=== PATIENT | female | born 1970 | race Caucasian/White ===

== ENCOUNTER 2019-07-30 23:50 | Observation (INO) | payer OTHER ==
[2019-07-31] MEDS ORDERED: ASPIRIN 81 MG CHEWABLE TABLET ONE (00:40)
[2019-07-31 00:52] LABS: Absolute Lymphocytes (CBC) 3.6 K/uL (0.7-4.9); Hematocrit 44.1 % (36.0-45.0); Lymphocytes % 39.2 % (15.3-44.8); MPV 8.5 fL (7.6-11.3); Protime INR 0.97; RBC Red Blood Cell Count 4.84 M/uL (3.86-4.86)
[2019-07-31 01:16] LABS: ALT/SGPT 17 U/L (12-78); AST/SGOT 11 U/L (15-37); Albumin 3.8 g/dL (3.4-5.0); Alkaline Phosphatase 57 U/L (45-117); BUN Blood Urea Nitrogen 14 mg/dL (7-18); Bicarbonate 25 mmol/L (21-32); Bilirubin Direct < 0.1 mg/dL (0-0.2); Bilirubin Total 0.3 mg/dL (0.2-1.0); Glucose Level 131 mg/dL (74-106); Magnesium 1.9 mg/dL (1.8-2.4); NT PRO-BNP 95 pg/mL (<125); Potassium 3.2 mmol/L (3.5-5.1); Protein, Total 6.8 g/dL (6.4-8.2); Sodium Level 141 mmol/L (136-145); Troponin (Emerg Dept Use Only) 0.03 ng/mL (0.0-0.045)
--- NOTE | 2019-07-31 01:30 | ER ---
Nurse's Notes [facility] Name: David El Age: 48 yrs Sex: Female : 1970 Arrival Date: 07/30/2019 Time: 23:52 Bed 15 Private MD: Diagnosis: Chest pain, unspecified;Angina pectoris, unspecified Presentation: 07/31 00:01 Presenting complaint: Intermittent left sided chest pain that radiates to left shoulder hb and neck x 2 months, worse over last few hours. Transition of care: patient was not received from another setting of care. Onset of symptoms was July 31, 2019. Risk Assessment: Do you want to hurt yourself or someone else? Patient reports no desire to harm self or others. Care prior to arrival: None. 00:01 Method Of Arrival: Ambulatory hb 00:01 Acuity: CHELSY 3 hb 02:50 Initial Sepsis Screen: Does the patient meet any 2 criteria? No. Patient's initial jd3 sepsis screen is negative. Does the patient have a suspected source of infection? No. Patient's initial sepsis screen is negative. 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 - Coronavirus screen:: The patient has NOT traveled to [place], [place], or [place] in the past 14 days. The patient has NOT had contact with known/suspected case of Coronavirus? Proceed with normal triage procedures. - Social history:: Smoking status: Patient reports the use of cigarette tobacco products, smokes one pack cigarettes per day. - Family history:: pertinent for heart disease. - Ebola Screening: : No symptoms or risks identified at this time. - Hospitalizations: : No recent hospitalization is reported. Screenin:50 Abuse screen: Denies threats or abuse. Nutritional screening: No deficits noted. jd3 Tuberculosis screening: No symptoms or risk factors identified. Fall Risk IV access (20 points). Ambulatory Aid- None/Bed Rest/Nurse Assist (0 pts). Gait- Normal/Bed Rest/Wheelchair (0 pts) Mental Status- Oriented to own ability (0 pts). Total Kelly Fall Scale indicates No Risk (0-24 pts). Assessment: 00:14 General: Appears in no apparent distress. Behavior is calm, cooperative, appropriate wh for age. Pain: Complains of pain in chest Pain radiates to neck and shoulder Pain currently is 4 out of 10 on a pain scale. Quality of pain is described as sharp, Pain began suddenly. Neuro: Level of Consciousness is awake, alert, obeys commands, Oriented to person, place, time, situation, Appropriate for age. Cardiovascular: Heart tones S1 S2 Rhythm is regular Chest pain is described as mild. Respiratory: Airway is patent Respiratory effort is even, unlabored, Respiratory pattern is regular, symmetrical, Breath sounds are clear bilaterally. GI: Abdomen is flat, non-distended. : No signs and/or symptoms were reported regarding the genitourinary system. EENT: No signs and/or symptoms were reported regarding the EENT system. Derm: Skin is intact, is healthy with good turgor, Skin is pink, warm \T\ dry. normal. Musculoskeletal: Circulation, motion, and sensation intact. 01:22 Reassessment: Patient appears in no apparent distress at this time. No changes from previously documented assessment. Patient and/or family updated on plan of care and expected duration. Pain level reassessed. Patient is alert, oriented x 3, equal unlabored respirations, skin warm/dry/pink. 02:45 General: Appears in no apparent distress. comfortable, Behavior is calm, cooperative, jd3 appropriate for age. Pain: Complains of pain in chest Quality of pain is described as aching. Neuro: Level of Consciousness is awake, alert, obeys commands, Oriented to person, place, time, situation. Cardiovascular: Capillary refill < 3 seconds Patient's skin is warm and dry. Rhythm is regular. Respiratory: Airway is patent Respiratory effort is even, unlabored, Respiratory pattern is regular, symmetrical, Denies cough, shortness of breath. GI: No signs and/or symptoms were reported involving the gastrointestinal system. : No signs and/or symptoms were reported regarding the genitourinary system. EENT: No signs and/or symptoms were reported regarding the EENT system. Derm: Skin is intact, Skin is dry, Skin is normal, Skin temperature is warm. Musculoskeletal: Circulation, motion, and sensation intact. Range of motion: intact in all extremities. 02:47 Reassessment: Patient appears in no apparent distress at this time. Patient and/or jd3 family updated on plan of care and expected duration. Pain level reassessed. Patient is alert, oriented x 3, equal unlabored respirations, skin warm/dry/pink. Patient states feeling better. 03:29 Reassessment: Patient appears in no apparent distress at this time. Patient and/or jd3 family updated on plan of care and expected duration. Pain level reassessed. Patient is alert, oriented x 3, equal unlabored respirations, skin warm/dry/pink. charting continued in [facility]. 12:00 Reassessment: Called report to ARDEN Patel. Information from the SBAR was given, and rb1 informed her that the next Troponin is due at 1600. She verbalized understanding. All questions asked and answered. Vital Signs: 00:05 BP 118 / 87; Pulse 82; Resp 16; Temp 97.8; Pulse Ox 100% on R/A; Weight 77.11 kg; hb Height 5 ft. 11 in. (180.34 cm); Pain 4/10; 01:15 BP 112 / 71; Pulse 53; Resp 18; Pulse Ox 97% on R/A; wh 02:48 BP 101 / 70; Pulse 69; Resp 14 S; Pulse Ox 96% on R/A; jd3 00:05 Body Mass Index 23.71 (77.11 kg, 180.34 cm) hb ED Course: 07/30 23:52 Patient arrived in ED. jg7 07/31 00:02 Triage completed. hb 00:02 Arm band placed on. hb 00:09 Jian Loya is Primary Nurse. wh 00:13 Jacob Martinez MD is Attending Physician. rn 00:27 Inserted saline lock: placed by Jian HER. jd3 01:12 Chest Single View In Process Unspecified. EDMS 01:29 Luana Johns MD is Hospitalizing Provider. rn 02:48 Patient has correct armband on for positive identification. Placed in gown. Bed in low jd3 position. Call light in reach. Side rails up X2. Adult w/ patient. personnel monitor on. Pulse ox on. NIBP on. 02:48 No provider procedures requiring assistance completed. Patient maintains SpO2 jd3 saturation greater than 95% on room air. 03:30 Patient admitted, IV remains in place. jd3 08:51 Urine Dipstick--Ancillary (enter results) Sent. rb1 12:40 No provider procedures requiring assistance completed. Patient admitted, IV remains in rb1 place. Administered Medications: 00:39 Drug: Aspirin Chewable Tablet 324 mg Route: PO; 01:30 Follow up: Response: No adverse reaction jd3 Outcome: 01:29 Decision to Hospitalize by Provider. rn 03:30 Admitted to ER Hold. Please see [facility] for further documentation. jd3 03:30 Condition: stable 03:30 Instructed on the need for admit, Demonstrated understanding of instructions. 12:40 Patient left the ED. rb1 12:40 Admitted to Tele accompanied by tech, family with patient, via stretcher, room 428, rb1 with chart, Report called to ARDEN Patel 12:40 Condition: stable 12:40 Instructed on the need for admit. Signatures: Dispatcher [employer] EDMS Jacob Martinez MD MD rn Barber, Rebecca, RN RN rb1 Edel Damon RN RN hb Habalo, Winsy Ricky Warren RN RN jd3 Gutierrez, Jessica jg7
--- NOTE | 2019-07-31 01:30 | EDPHYS ---
Physician Documentation [facility] Name: David El Age: 48 yrs Sex: Female : 1970 Arrival Date: 07/30/2019 Time: 23:52 Bed 15 Private MD: ED Physician Jacob Martinez HPI: 07/31 00:24 This 48 yrs old Female presents to ER via Ambulatory with complaints of Chest rn Pain, Dizziness. 00:24 The patient or guardian reports chest pain that is located primarily in the substernal rn area. Onset: at an unknown time. The pain radiates to the left shoulder, The chest pain is described as a pressure. Duration: The patient or guardian reports multiple episodes, that are intermittent. Modifying factors: The symptoms are alleviated by nothing. the symptoms are aggravated by nothing. Severity of pain: At its worst the pain was moderate in the emergency department the pain has improved. The patient has experienced similar episodes in the past. Reports scheduled for cath next week, failed stress test this past week, no fever/cough, + smoker and multiple family members with [place] and bypass in late 40s and 50s. No trauma.. 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 - Coronavirus screen:: The patient has NOT traveled to [place], [place], or [place] in the past 14 days. The patient has NOT had contact with known/suspected case of Coronavirus? Proceed with normal triage procedures. - Social history:: Smoking status: Patient reports the use of cigarette tobacco products, smokes one pack cigarettes per day. - Family history:: pertinent for heart disease. - Ebola Screening: : No symptoms or risks identified at this time. - Hospitalizations: : No recent hospitalization is reported. ROS: 00:24 Constitutional: Negative for fever, chills, and weight loss, Eyes: Negative for injury, rn pain, redness, and discharge, Neck: Negative for injury, pain, and swelling, Cardiovascular: + chest pain Respiratory: Negative for shortness of breath, cough, wheezing, and pleuritic chest pain, Abdomen/GI: Negative for abdominal pain, nausea, vomiting, diarrhea, and constipation, MS/Extremity: Negative for injury and deformity, Skin: Negative for injury, rash, and discoloration, Neuro: Negative for headache, weakness, numbness, tingling, and seizure. Exam: 00:24 Constitutional: This is a well developed, well nourished patient who is awake, alert, rn and in no acute distress. Head/Face: Normocephalic, atraumatic. Eyes: Pupils equal round and reactive to light, extra-ocular motions intact. Lids and lashes normal. Conjunctiva and sclera are non-icteric and not injected. Cornea within normal limits. Periorbital areas with no swelling, redness, or edema. Neck: Trachea midline, no thyromegaly or masses palpated, and no cervical lymphadenopathy. Supple, full range of motion without nuchal rigidity, or vertebral point tenderness. No Meningismus. Cardiovascular: Regular rate and rhythm. No pulse deficits. Respiratory: No increased work of breathing, no retractions or nasal flaring. Abdomen/GI: soft, non-tender MS/ Extremity: Pulses equal, no cyanosis. Neurovascular intact. Full, normal range of motion. Equal circumference. Neuro: Awake and alert, GCS 15, oriented to person, place, time, and situation. Cranial nerves II-XII grossly intact. Motor strength 5/5 in all extremities. Sensory grossly intact. Vital Signs: 00:05 BP 118 / 87; Pulse 82; Resp 16; Temp 97.8; Pulse Ox 100% on R/A; Weight 77.11 kg; hb Height 5 ft. 11 in. (180.34 cm); Pain 4/10; 01:15 BP 112 / 71; Pulse 53; Resp 18; Pulse Ox 97% on R/A; wh 02:48 BP 101 / 70; Pulse 69; Resp 14 S; Pulse Ox 96% on R/A; jd3 00:05 Body Mass Index 23.71 (77.11 kg, 180.34 cm) hb MDM: 00:13 Patient medically screened. rn 01:27 Differential diagnosis: acute myocardial infarction, pericarditis, stable angina, rn unstable angina. The patient was given aspirin in the Emergency Department. Data reviewed: vital signs, nurses notes, lab test result(s), EKG, radiologic studies, plain films, and as a result, I will admit patient. Test interpretation: by ED physician or midlevel provider: ECG, plain radiologic studies. Counseling: I had a detailed discussion with the patient and/or guardian regarding: the historical points, exam findings, and any diagnostic results supporting the discharge/admit diagnosis, lab results, radiology results, the need for further work-up and treatment in the hospital. Response to treatment: the patient is now symptom free, and as a result, I will admit patient. Admission orders: after a detailed discussion of the patient's condition and case, the admit orders are written by me. ED course: Pt with failed outpt stress test and strong family hx of cardiac problems, neg trop, no ischemia on ECG, will admit for cardiac consult and testing, and possible cath on Thursday.. 07/31 00:42 Order name: Basic Metabolic Panel [facility] 07/31 00:42 Order name: Liver (Hepatic) Function [facility] 07/31 00:42 Order name: Troponin (Emerg Dept Use Only) [facility] 07/31 00:42 Order name: NT PRO-BNP [facility] 07/31 00:42 Order name: Magnesium [facility] 07/31 00:43 Order name: CBC with Automated Diff; Complete Time: 01: [facility] 07/31 00:43 Order name: Protime (+INR); Complete Time: : [facility] 07/31 00:10 Order name: Cardiac monitoring; Complete Time: 07/31 00:10 Order name: EKG - Nurse/Tech; Complete Time: 07/31 00:10 Order name: IV Saline Lock; Complete Time: 07/31 00:10 Order name: Labs collected and sent; Complete Time: 07/31 00:10 Order name: O2 Per Protocol; Complete Time: 07/31 00:53 Order name: Chest Single View [facility] 07/31 04:57 Order name: Thyroid Stimulating Hormone [facility] 07/31 07:05 Order name: Diet Heart Healthy; Complete Time: 07:05 ph 07/31 08:41 Order name: CKMB Creatine Kinase MB [facility] 07/31 08:41 Order name: Troponin I EDKS 07/31 08:49 Order name: Urine Dipstick--Ancillary (enter results) ms 07/31 09:04 Order name: Urinalysis EDKS 07/31 09:04 Order name: Urine Dipstick-Ancillary EDKS 07/31 00:10 Order name: O2 Sat Monitoring; Complete Time: 00:27 Administered Medications: 00:39 Drug: Aspirin Chewable Tablet 324 mg Route: PO; 01:30 Follow up: Response: No adverse reaction jd3 Disposition: 07/31/19 01:29 Hospitalization ordered by Luana Johns for Observation. Preliminary diagnosis are Chest pain, unspecified, Angina pectoris, unspecified. - Bed requested for Telemetry/MedSurg (observation). - Status is Observation. rb1 - Condition is Stable. - Problem is an ongoing problem. - Symptoms have improved. UTI on Admission? No Signatures: Dispatcher [employer] [facility] Urmila Larson RN ARDEN Jacob Martinez MD MD rn Barber, Rebecca RN RN rb1 Edel Damon RN RN Jian Loya John Ward RN RN jaRicky Campbell RN jd3 Corrections: (The following items were deleted from the chart) 02:43 02:19 PROTIME (+INR)+COAG.LAB.BRZ ordered. [facility] EDKS 02:43 02:19 Chest Single View+RAD.RAD.BRZ ordered. [facility] EDKS 02:45 02:19 BASIC METABOLIC PANEL+C.LAB.BRZ ordered. [facility] EDKS 02:45 02:19 CBC+H.LAB.BRZ ordered. [facility] EDKS 02:45 02:19 HEPATIC FUNCTION+C.LAB.BRZ ordered. [facility] EDKS 02:45 02:19 MAGNESIUM+C.LAB.BRZ ordered. [facility] EDKS 02:45 02:19 PROBNP+C.LAB.BRZ ordered. [facility] EDKS 02:45 02:19 TROPONIN (EMERG DEPT USE ONLY)+C.LAB.BRZ ordered. [facility] 04:12 01:29 Hospitalization Ordered by Luana Johns MD for Observation. Preliminary diagnosis fc is Chest pain, unspecified; Angina pectoris, unspecified. Bed requested for Telemetry/MedSurg (observation). Status is Observation. Condition is Stable. Problem is an ongoing problem. Symptoms have improved. UTI on Admission? No. rn 11:18 04:12 07/31/2019 01:29 Hospitalization Ordered by Luana Johns MD for Observation. ja1 Preliminary diagnosis is Chest pain, unspecified; Angina pectoris, unspecified. Bed requested for [facility] ER HOLD. Status is Observation. Condition is Stable. Problem is an ongoing problem. Symptoms have improved. UTI on Admission? No. fc 12:40 11:18 07/31/2019 01:29 Hospitalization Ordered by Luana Johns MD for Observation. rb1 Preliminary diagnosis is Chest pain, unspecified; Angina pectoris, unspecified. Bed requested for Telemetry/MedSurg (observation). Status is Observation. Condition is Stable. Problem is an ongoing problem. Symptoms have improved. UTI on Admission? No. ja1
[2019-07-31] MEDS ORDERED: NITROGLYCERIN 0.4 MG/TAB SL PRN (03:23)
[2019-07-31] MEDS ORDERED: ONDANSETRON 4 MG/2 ML VIAL IV PRN (03:23)
[2019-07-31] MEDS ORDERED: MORPHINE 4 MG/ML SYR IV PRN (03:23)
--- NOTE | 2019-07-31 03:35 | P.HP ---
Certification for Inpatient Patient admitted to: Observation With expected LOS: <2 Midnights Patient will require the following post-hospital care: None Practitioner: I am a practitioner with admitting privileges, knowledge of patient current condition, hospital course, and medical plan of care. Services: Services provided to patient in accordance with Admission requirements found in Title 42 Section 412.3 of the Code of Federal Regulations Patient History Date of Service: 07/31/19 Reason for admission: chest pain History of Present Illness: angela helms is a 48yoF w/ pmhx of HTN on 3 separate BP medications who presents to the ER w/ cp. she states that she has been having chest pain since june. she played her CP off as heartburn and did not not seek medical evaluation at that time. once she noted that the "heartburn" became more frequent she sought out help. she was referred to an curriculum and instruction specialist who did a chemical stress test which she could not complete due to intense chest tightness. she was informed that the curriculum and instruction specialist would schedule a LHC by the end for next week.she presents today because during the day she has CP hourly. during the night she has CP up to [id number]. she has significant family hx and her father had 3V CABG at the age 52. she reports her brother had CAD at age 59. her mother w/ CAD/3CABG in her 70's. she denies tobacco, etoh and drugs. Allergies No Known Allergies Allergy (Unverified 06/21/12 10:50) Review of Systems Respiratory: Shortness of Breath, SOB with Excertion Cardiovascular: Chest Pain, Orthopnea Gastrointestinal: As per HPI, Unremarkable Musculoskeletal: As per HPI, Unremarkable Physical Examination - Physical Exam General: Alert, In no apparent distress, Oriented x3, Cooperative HEENT: Atraumatic, PERRLA, EOMI Neck: Supple Respiratory: Clear to auscultation bilaterally, Normal air movement Cardiovascular: No edema, Normal pulses, No murmurs Capillary refill: <2 Seconds Gastrointestinal: Normal bowel sounds, Soft and benign, Non-distended, No tenderness, No guarding Musculoskeletal: No clubbing, No swelling, No tenderness, No warmth Integumentary: No rashes, No breakdown, No significant lesion Neurological: Normal speech, Other External genitalia: Deferred Rectal: Deferred - Studies Laboratory Data (last 24 hrs) 07/31/19 00:20: PT 11.5, INR 0.97 07/31/19 00:20: WBC 9.2, Hgb 15.1 H, Hct 44.1, Plt Count 260 07/31/19 00:20: Sodium 141, Potassium 3.2 L, BUN 14, Creatinine 1.26, Glucose 131 H, Magnesium 1.9, Total Bilirubin 0.3, AST 11 L, ALT 17, Alkaline Phosphatase 57 07/31/19 00:10: PT Cancelled, INR Cancelled 07/31/19 00:10: WBC Cancelled, Hgb Cancelled, Hct Cancelled, Plt Count Cancelled 07/31/19 00:10: Sodium Cancelled, Potassium Cancelled, BUN Cancelled, Creatinine Cancelled, Glucose Cancelled, Magnesium Cancelled, Total Bilirubin Cancelled, AST Cancelled, ALT Cancelled, Alkaline Phosphatase Cancelled Assessment and Plan - Plan 48yoF admitted w/ Chest pain - typical chest pain/ on going pain/failed stress test admit to obs consult cardio tele, a1c, lipid panel and tsh morphine, supplemental o2, started on SL Nitro - will try nitro patch if BP is able to tolerate trend CE and obtain TTE HTN - on 3 meds currently low BP and thus will hold antiHTN medications would 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
[2019-07-31 04:56] VITALS: BMI 23.7
[2019-07-31 08:41] LABS: CKMB Creatine Kinase MB < 1.0 ng/mL (0.3-3.6); Troponin I 0.03 ng/mL (0.0-0.045)
--- NOTE | 2019-07-31 08:50 | RAD REPORT ---
EXAM DESCRIPTION: Silvina Single View07/31/2019 1:12 am CLINICAL HISTORY: Chest pain COMPARISON: 2011 FINDINGS: The lungs appear clear of acute infiltrate. The heart is normal size IMPRESSION: No acute abnormalities displayed
[2019-07-31 08:56] LABS: Urine Appearance CLEAR; Urine Bilirubin NEGATIVE (NEG); Urine Blood NEGATIVE (NEG); Urine Color YELLOW; Urine Glucose NEGATIVE (NEG); Urine Protein NEGATIVE (NEG); Urine pH 6.5 (5.0-7.0)
[2019-07-31] MEDS: METOPROLOL XL 25 MG TAB PO SCH (09:00)
[2019-07-31] MEDS ORDERED: ASPIRIN 325 MG TAB PO SCH (09:00)
[2019-07-31] MEDS: ENOXAPARIN 40 MG/0.4 ML SQ SCH (09:00)
[2019-07-31 09:04] LABS: Urine Microscopic Reflex NO UMIC
[2019-07-31 09:04] LABS: Urine Blood NEGATIVE (NEG); Urine Glucose NEGATIVE (NEG); Urine Protein NEGATIVE (NEG); Urine Specific Gravity 1.025 (1.005-1.030); Urine pH 6.5 (5.0-7.0)
--- NOTE | 2019-07-31 09:41 | EKG ---
Test Date: 2019-07-31 Test Time: 00:13:38 Real Estate Office Manager: JENAE MEASUREMENT RESULTS: Intervals: Rate: 68 FL: 146 QRSD: 90 QT: 420 QTc: 446 [place]: P: 72 FL: 146 QRS: 69 T: 52 INTERPRETIVE STATEMENTS: Sinus rhythm with premature atrial complexes Nonspecific ST abnormality Abnormal ECG Compared to ECG 06/21/2012 12:33:09 Atrial premature complex(es) now present ST (T wave) deviation now present Electronically Signed On 07-31-19 09:40:38 CHILD CARE CENTER ASSISTANT DIRECTOR by Damaso Neely
--- NOTE | 2019-07-31 10:26 | P.PN ---
Subjective Date of Service: 07/31/19 Chief Complaint: chest pain Subjective: Improving (Patient doing better admitted with unstable angina she has been having chest pain since June failed stress test has chest pain on minimal exertion classical anginal pain multiple risk factors) Review of Systems Unremarkable Physical Examination - Vital Signs Temperature: 98.3 F Blood Pressure: 109/76 Pulse: 61 Respirations: 12 Pulse Ox (%): 94 - Physical Exam General: Alert, In no apparent distress HEENT: Atraumatic Neck: Supple Respiratory: Clear to auscultation bilaterally Cardiovascular: No edema, Regular rate/rhythm - Studies Laboratory Data (last 24 hrs) 07/31/19 00:20: PT 11.5, INR 0.97 07/31/19 00:20: WBC 9.2, Hgb 15.1 H, Hct 44.1, Plt Count 260 07/31/19 00:20: Sodium 141, Potassium 3.2 L, BUN 14, Creatinine 1.26, Glucose 131 H, Magnesium 1.9, Total Bilirubin 0.3, AST 11 L, ALT 17, Alkaline Phosphatase 57 07/31/19 00:10: PT Cancelled, INR Cancelled 07/31/19 00:10: WBC Cancelled, Hgb Cancelled, Hct Cancelled, Plt Count Cancelled 07/31/19 00:10: Sodium Cancelled, Potassium Cancelled, BUN Cancelled, Creatinine Cancelled, Glucose Cancelled, Magnesium Cancelled, Total Bilirubin Cancelled, AST Cancelled, ALT Cancelled, Alkaline Phosphatase Cancelled Assessment & Plan - Problems (Diagnosis) (1) Unstable angina Current Visit: Yes Status: Acute Plan: Patient is 48 years of age admitted with unstable angina multiple risk factors including smoking hypertension significant family history of coronary artery disease for far EKGs normal troponin negative failed a stress test at [facility] I have added a beta bekah cardiology Consult Discharge Plan: Home Plan to discharge in: 48 Hours
[2019-07-31] MEDS ORDERED: PRASUGREL (EFFIENT) 10 MG TAB PO ONE ×2 (12:06→16:00)
--- NOTE | 2019-07-31 17:23 | CON ---
Identification: 48-year-old woman. History Of Present Illness: Mrs. El is 48. She came to the hospital because of chest pain. Joelle strickland has been having chest pain off and on for a month or longer. She had a nuclear stress test, failed to get a diagnostic result. Her physicians recommended a cardiac cath at [facility] in [place], but the patient does not have the test scheduled and was having chest pain at rest and decided [facility]. She has never had a cardiac cath before. No history of myocardial infarction or s troke or diabetes. She is a regular cigarette smoker, dyslipidemia. Allergies: SHE REPORTS NO ALLERGIES. Medications: Her outpatient medications have been including aspirin, lisinopril, hydrochlorothiazide , metoprolol, Topamax, Naprosyn, trazodone. Past Surgical History: She has had a previous hysterectomy, tonsillectomy, cholecystectomy, 2, para 2. Family History: Both parents have had bypass surgery. Several siblings have had coronary heart dise ase requiring stents. Physical Examination: General: She is alert, oriented, pleasant. Vital Signs: 5 feet 11 inches, 169 pounds. HEENT: Normal. Lungs: Clear. Cardiac: Normal. Abdomen: Soft. Extremities: Normal carotids. No bruit. Her distal pulses are palpable, but diminished. Skin: Warm, pink, well perfused. Impression And Plan: The patient has unstable angina. The fact that her troponins normal, it is a g ood thing. She has mild renal insufficiency. Estimated GFR 45, but she really seems to have unstabl e symptoms with an inconclusive noninvasive workup. Cardiac cath is recommended. Her symptoms sound s like she has unstable angina. We will schedule a left heart catheterization, possible stent tomorr ow. We had a discussion of the procedure, its potential benefits, indications, risks and she is agre es to proceed. She is very concerned that she has heart disease. She knows she should quit smoking. We will put her through the tobacco cessation program. Thank you very much for kind referral of Ms. El. I will follow her with you. JOELLE/MODL Voice ID: [id number] Report ID: [id number]
[2019-07-31 17:36] LABS: CKMB Creatine Kinase MB < 1.0 ng/mL (0.3-3.6); Troponin I 0.03 ng/mL (0.0-0.045)
[2019-07-31] MEDS ORDERED: INFLUENZA VACCINE (for 3y+) 0.5 ML DOSE IMVAC ONE (19:00)
[2019-07-31] MEDS: ACETYLCYST 20% 800 MG/4 ML VIAL PO SCH (21:43)
[2019-08-01 04:18] LABS: Basophils % 0.7 % (0-1.3); Hematocrit 42.6 % (36.0-45.0); Lymphocytes % 40.1 % (15.3-44.8); RBC Red Blood Cell Count 4.66 M/uL (3.86-4.86)
[2019-08-01 04:31] LABS: Albumin 3.4 g/dL (3.4-5.0); Bilirubin Total 0.2 mg/dL (0.2-1.0); Potassium 3.4 mmol/L (3.5-5.1); Protein, Total 6.4 g/dL (6.4-8.2)
[2019-08-01] MEDS: ASPIRIN 81 MG CHEWABLE TABLET PO SCH (05:56)
[2019-08-01] MEDS: METOPROLOL XL 25 MG TAB PO SCH (05:56)
[2019-08-01] MEDS: ACETYLCYST 20% 800 MG/4 ML VIAL PO SCH ×2 (05:56→21:00)
[2019-08-01] MEDS: CLOPIDOGREL 75 MG TABLET PO SCH (05:56)
--- NOTE | 2019-08-01 08:05 | EKG ---
Test Date: 2019-07-31 Test Time: 10:33:04 Java Tech: SOLITARIO MEASUREMENT RESULTS: Intervals: Rate: 64 UT: 146 QRSD: 80 QT: 412 QTc: 425 [place]: P: 64 UT: 146 QRS: 61 T: 37 INTERPRETIVE STATEMENTS: Normal sinus rhythm Normal ECG Compared to ECG 07/31/2019 00:13:38 Atrial premature complex(es) no longer present ST (T wave) deviation no longer present Electronically Signed On 08-01-19 08:04:19 BUSINESS DEVELOPMENT by Damaso Neely
[2019-08-01] MEDS: ENOXAPARIN 40 MG/0.4 ML SQ SCH (08:38)
[2019-08-01] MEDS ORDERED: MORPHINE 2 MG/ML SYR IV PRN (09:19)
[2019-08-01] MEDS ORDERED: HEPARIN 5000 UNIT/ML 1 ML VIAL ONE (09:25)
[2019-08-01] MEDS ORDERED: MIDAZOLAM HCL 2 MG/2 ML INJ ONE ×2 (09:25→09:41)
[2019-08-01] MEDS ORDERED: ATROPINE SULF 1 MG/10 ML SYR IV ONE (09:25)
[2019-08-01] MEDS ORDERED: NICARDIPINE HCL 25 MG/10 ML IV ONE (09:25)
[2019-08-01] MEDS ORDERED: FENTANYL CITR 100 MCG/2 ML ONE (09:25)
[2019-08-01] MEDS ORDERED: NA CHLORIDE 0.9% 50 ML ONE (09:26)
[2019-08-01] MEDS ORDERED: HEPA 1000U/500MLS 2,000 UNIT/1,000 ML BAG IV ONE (09:28)
[2019-08-01] MEDS ORDERED: NA CHLORIDE 0.9% 500 ML ONE (09:28)
--- NOTE | 2019-08-01 11:30 | OP ---
Surgeon: Damaso Neely MD Procedures: Left heart catheterization with coronary angiography, percutaneous coronary intervention of an obtuse marginal coronary artery because of a 99% stenosis. Procedure Findings: The patient's left ventricular ejection fraction was not measured. We wanted to reduce the amount of contrast given during the case. She had sequential 50% right coronary lesions. Her LAD was diffusely plaqued, mildly calcified. No significant stenosis. Left main, no significa nt stenosis. Proximal circumflex and first small OM, free of disease. The major OM vessel had a 99% stenosis. This was successfully treated with a stent to a 0% stenosis. Procedure In Detail: The patient had evidence of unstable angina. She was brought to the cardiac ca th lab in a fasting state, sedated with Versed and fentanyl. Prepared and draped in usual sterile fa shion. Right radial approach was used. The tissues around the right radial artery were anesthetized with 1% lidocaine. The artery was entered using a 21-gauge needle, cannulated with a 0.021 inch homar meter guidewire, modified Seldinger technique was used to place a 5/6-[place] Terumo radial sheath. W e flushed the sheath and gave a radial cocktail consisting of nicardipine, heparin and nitroglycerin. We guided the TIG catheter into the ascending aorta using fluoroscopy and a short radius J-tip Glid ewire. We angiogramed right and left coronaries, left ventricle with the same TIG catheter. The dec ision was then made to stent the obtuse marginal and we exchanged over an exchange length J-wire. We removed the TIG catheter and placed an XB 3.5 with side holes. This engaged the left main ostium an d gave adequate support. We crossed the lesion with a [place] wire, parked it in the distal portion o f the vessel and we were able to place a stent across the lesion. The stent was a 3.0 x 12 Synergy. We inflated it to 11 atmospheres. Full deployment. Angiographic assessment was excellent. At the end of the procedure, wires and balloons were withdrawn from the artery. Final pictures were taken i n orthogonal views. Then, the guide catheter was removed. Pressure was measured from the sheath and demonstrated adequate waveforms and we removed the sheath and closed the arteriotomy using a TR band . Complications From The Procedure: None. Estimated Blood Loss: 10 cc. Dental Prosthetist: Shanell Casey. JOELLE/SHEREEN Voice ID: [id number] Report ID: [id number]
--- NOTE | 2019-08-01 11:54 | P.PN ---
Subjective Date of Service: 08/01/19 Primary Care Provider: None Chief Complaint: chest pain Subjective: Improving, Doing well Physical Examination - Vital Signs Temperature: 97.4 F Blood Pressure: 149/89 Pulse: 67 Respirations: 16 Pulse Ox (%): 97 - Physical Exam General: Alert, Cooperative HEENT: Atraumatic Neck: Supple Respiratory: Clear to auscultation bilaterally, Normal air movement Cardiovascular: Normal pulses, Regular rate/rhythm Gastrointestinal: Normal bowel sounds, Soft and benign, Non-distended Musculoskeletal: No tenderness, No warmth Integumentary: No erythema, No warmth, No cyanosis Neurological: Normal speech, Normal strength at 5/5 x4 extr, Normal tone, Normal affect - Studies Medications List Reviewed: Yes Assessment & Plan Discharge Plan: Home Plan to discharge in: 24 Hours Physician Review Additional Text: Impression: Chest pain likely unstable angina status post heart catheterization requiring intervention-stent to obtuse marginal coronary artery Hypertension Hyperlipidemia Plan: Chest pain likely unstable angina status post heart catheterization requiring intervention-stent to obtuse marginal coronary artery: Case discussed with cardiology. Patient had stent placed. Anticipate discharge tomorrow on aspirin , Plavix, statin medication and hypertensive medications. Will continue to monitor closely. Hypertension: Continue medications-losartan and metoprolol Hyperlipidemia: Continue statin medication-Lipitor Time Spent Managing Pts Care (In Minutes): 55
[2019-08-01] MEDS ORDERED: TRAMADOL HCL 50 MG TAB PO PRN (17:44)
[2019-08-01] MEDS ORDERED: HYDROCODONE/APAP 7.5/325 MG TAB PO PRN (17:44)
[2019-08-01] MEDS ORDERED: ATORVASTATIN 80 MG TAB PO SCH (21:00)
[2019-08-02 04:19] LABS: Hematocrit 45.3 % (36.0-45.0); RBC Red Blood Cell Count 4.85 M/uL (3.86-4.86)
[2019-08-02 04:30] LABS: Potassium 3.7 mmol/L (3.5-5.1)
[2019-08-02] MEDS: ASPIRIN 81 MG CHEWABLE TABLET PO SCH (08:04)
[2019-08-02] MEDS: CLOPIDOGREL 75 MG TABLET PO SCH (08:04)
[2019-08-02] MEDS: METOPROLOL XL 25 MG TAB PO SCH (08:04)
[2019-08-02] MEDS: ACETYLCYST 20% 800 MG/4 ML VIAL PO SCH (08:05)
[2019-08-02 08:06] VITALS: BP 153/85
--- NOTE | 2019-08-02 08:17 | P.DS ---
Admission Date: 07/31/19 Discharge Date: 08/02/19 Primary Care Provider: None Disposition: ROUTINE DISCHARGE Discharge Condition: GOOD Reason for Admission: chest pain Consultations: cardiology-Dr. Neely Procedures: Heart catheterization: Surgeon: Damaso Neely MD Procedures: Left heart catheterization with coronary angiography, percutaneous coronary intervention of an obtuse marginal coronary artery because of a 99% stenosis. Procedure Findings: The patient's left ventricular ejection fraction was not measured. We wanted to reduce the amount of contrast given during the case. She had sequential 50% right coronary lesions. Her LAD was diffusely plaqued, mildly calcified. No significant stenosis. Left main, no significant stenosis. Proximal circumflex and first small OM, free of disease. The major OM vessel had a 99% stenosis. This was successfully treated with a stent to a 0 % stenosis. Complications From The Procedure: None. Estimated Blood Loss: 10 cc. Medical Problem List: Chest pain likely unstable angina status post heart catheterization requiring intervention-stent to obtuse marginal coronary artery Hypertension Hyperlipidemia Chronic pain Migraine headaches Tobacco abuse Brief History of Present Illness: 40-year-old female with history of hypertension. Patient reported chest pain often on over the past month. Prior to admission, She apparently had a nuclear stress test which was abnormal. Physicians at [facility] recommended heart catheterization. She had yet to make an appointment. Patient was admitted for further evaluation and treatment. Hospital Course: Patient presented with chest pain. This was likely unstable angina. Patient had seen [facility] physicians. She had an abnormal stress test prior to her admission. Heart catheterization was recommended. She had not made an appointment for this. She was admitted for further evaluation. Cardiology recommended heart catheterization at this time. Heart catheterization performed. Occlusion to the off obtuse marginal Coronary artery noted. Stent was placed and successful. Patient has done well post heart catheterization. At discharge she will continue with aspirin 81 mg daily, Plavix 75 mg daily, metoprolol XL 25 mg 1 pill twice daily, Lipitor 80 mg daily, and lisinopril hydrochlorothiazide 10/12.5 mg once daily. Recommend a follow up with cardiology in 2-4 weeks to monitor her progress. Patient with hypertension. At discharge she will continue with metoprolol XL 25 mg 1 pill twice daily and lisinopril hydrochlorothiazide 10/12.5 mg mg 1 pill daily. Recommend to maintain blood pressures less 150/80. Further adjustment can be done by her PCP or cardiology. Patient with hyperlipidemia. At discharge she will continue with Lipitor 80 mg daily. Patient with history of migraine headaches and chronic pain. At discharge she will continue with her current medications of Topamax 50 mg 1 pill twice daily, hydrocodone as directed, and trazodone 150 mg at bedtime. Patient with tobacco abuse. Tobacco cessation addressed in detail. Cessation recommended. Vital Signs/Physical Exam: Temp Pulse Resp BP Pulse Ox 97.4 F 64 18 153/85 H 88 L 08/02/19 04:00 08/02/19 08:04 08/02/19 04:00 08/02/19 08:04 08/02/19 04:00 General: Alert, In no apparent distress, Oriented x3, Cooperative HEENT: Atraumatic Neck: Supple Respiratory: Clear to auscultation bilaterally, Normal air movement Cardiovascular: Normal pulses, Regular rate/rhythm Gastrointestinal: Normal bowel sounds, Soft and benign, Non-distended Musculoskeletal: No tenderness, No warmth Integumentary: No tenderness/swelling, No erythema, No warmth, No cyanosis Neurological: Normal speech, Normal strength at 5/5 x4 extr, Normal tone, Normal affect Laboratory Data at Discharge: WBC 7.9 K/uL (4.3-10.9) 08/02/19 03:47 Hgb 14.9 g/dL (12.0-15.0) 08/02/19 03:47 Hct 45.3 % (36.0-45.0) H 08/02/19 03:47 Plt Count 237 K/uL (152-406) 08/02/19 03:47 PT 11.8 SECONDS (9.5-12.5) 08/01/19 03:52 INR 1.00 08/01/19 03:52 Sodium 142 mmol/L (136-145) 08/02/19 03:47 Potassium 3.7 mmol/L (3.5-5.1) 08/02/19 03:47 BUN 12 mg/dL (7-18) 08/02/19 03:47 Creatinine 1.21 mg/dL (0.55-1.3) 08/02/19 03:47 Glucose 102 mg/dL (74-106) 08/02/19 03:47 Magnesium 2.0 mg/dL (1.8-2.4) 08/01/19 03:52 Total Bilirubin 0.2 mg/dL (0.2-1.0) 08/01/19 03:52 AST 9 U/L (15-37) L 08/01/19 03:52 ALT 14 U/L (12-78) 08/01/19 03:52 Alkaline Phosphatase 52 U/L (45-117) 08/01/19 03:52 Troponin I Cancelled 07/31/19 19:23 Triglycerides 263 mg/dL (<150) H 08/01/19 03:52 Cholesterol 171 mg/dL (<200) 08/01/19 03:52 HDL Cholesterol 25 mg/dL (40-60) L 08/01/19 03:52 Cholesterol/HDL Ratio 6.84 08/01/19 03:52 Home Medications: Aspirin [Adult Low Dose Aspirin EC] 81 mg PO DAILY 07/31/19 Lisinopril/Hydrochlorothiazide [Lisinopril-Hctz 10-12.5 mg Tab] 1 tab PO DAILY 07/31/19 Metoprolol Succinate [Toprol Xl*] 25 mg PO BID 07/31/19 Topiramate 50 mg PO BID 07/31/19 Trazodone [Desyrel*] 150 mg PO BEDTIME 07/31/19 Atorvastatin Calcium [Lipitor] 80 mg PO BEDTIME #30 tab 08/02/19 Clopidogrel Bisulfate [Plavix*] 75 mg PO DAILY #30 tablet 08/02/19 Hydrocodone 7.5/APAP 325 [[place] 7.5/325 mg*] 1 tab PO Q6H PRN tab 08/02/19 Metoprolol Succinate [Toprol Xl*] 25 mg PO DAILY #30 tab 08/02/19 traMADol HCL [Ultram*] 50 mg PO TID PRN tab 08/02/19 New Medications: Atorvastatin Calcium [Lipitor] 80 mg PO BEDTIME #30 tab Clopidogrel Bisulfate [Plavix*] 75 mg PO DAILY #30 tablet Metoprolol Succinate [Toprol Xl*] 25 mg PO DAILY #30 tab Patient Discharge Instructions: 1. Recommend follow up with PCP in 1-2 weeks to follow up this hospitalization. 2. Patient presented with chest pain. This was likely unstable angina. Prior to admission, Patient had seen [facility] physicians. She had an abnormal stress test prior to her admission. Heart catheterization was recommended. She had not made an appointment for this. She was admitted for further evaluation. Cardiology recommended heart catheterization at this time. Heart catheterization performed. Occlusion to the obtuse marginal coronary artery noted. Stent was placed and successful. Patient has done well post heart catheterization. At discharge she will continue with aspirin 81 mg daily, Plavix 75 mg daily, metoprolol XL 25 mg 1 pill twice daily, Lipitor 80 mg daily, and lisinopril hydrochlorothiazide 10/ 12.5 mg once daily. Recommend a follow up with cardiology in 2-4 weeks to monitor her progress. 3. Patient with hypertension. At discharge she will continue with metoprolol XL 25 mg 1 pill twice daily and lisinopril hydrochlorothiazide 10/12.5 mg mg 1 pill daily. Recommend to maintain blood pressures less 150/80. Further adjustment can be done by her PCP or cardiology. 4. Patient with hyperlipidemia. At discharge she will continue with Lipitor 80 mg daily. 5. Patient with history of migraine headaches and chronic pain. At discharge she will continue with her current medications of Topamax 50 mg 1 pill twice daily, hydrocodone as directed, and trazodone 150 mg at bedtime. 6. Patient with tobacco abuse. Tobacco cessation addressed in detail. Cessation recommended. Diet: AHA Activity: Ad branden Time spent managing pt's care (in minutes): 55
[2019-08-02 08:18] VITALS: O2SAT 96
[2019-08-02] MEDS ORDERED: LOSARTAN POTASSIUM 50 MG TABLET PO SCH (09:00)
[2019-08-02 09:16] VITALS: TEMP 97.3
--- NOTE | 2019-08-02 15:57 | EKG ---
Test Date: 2019-08-01 Test Time: 17:44:44 [employer]: [place]AMIA MEASUREMENT RESULTS: Intervals: Rate: 59 MD: 154 QRSD: 86 QT: 406 QTc: 401 [place]: P: 67 MD: 154 QRS: 58 T: 5 INTERPRETIVE STATEMENTS: Sinus bradycardia Otherwise normal ECG Compared to ECG 07/31/2019 10:33:04 Sinus rhythm no longer present Electronically Signed On 08-02-19 15:52:23 AUTOMATIC OVEN OPERATOR by Jose Mar
== END 2019-08-02 09:19 | disposition home or self-care (01) ==
LOC: ER 23:50 → ERHOLD 07-31 03:23 → 4TH 07-31 12:03
PROVIDERS: ADMIT Internal Medicine; ATTEND Internal Medicine
DX: R07.9 Chest pain, unspecified (principal); I24.0 Acute coronary thrombosis not resulting in myocardial infarction; E78.5 Hyperlipidemia, unspecified; I10 Essential (primary) hypertension; G89.29 Other chronic pain; G43.909 Migraine, unspecified, not intractable, without status migrainosus; F17.210 Nicotine dependence, cigarettes, uncomplicated
CPT/HCPCS: 93005 ×3; 85025 ×2; 80048 ×2; 36415 ×2; 83735 ×2; 85610 ×2; 80061; 80076; 85347; 84443; 81003 ×2; 85027; 84484 ×3; 82553 ×2; 80053; 83880; 71045; 92928; 93458; 99285; C1893; C1725; J1644; J2250 ×2; J3010; J2270; J0583; G0378 ×5; J7040